=== PATIENT | female | born 1960 | race Caucasian/White ===

== ENCOUNTER 2023-08-06 13:37 | Emergency (ER) | payer OTHER, SELFPAY ==
[2023-08-06 13:43] VITALS: BP 135/81; PULSE 71; RESP 17; TEMP 36.8; O2SAT 96; BMI 26.6
--- NOTE | 2023-08-06 13:46 | XRR_ITS ---
PROCEDURE INFORMATION: Exam: XR Right Shoulder Exam date and time: 08/06/2023 1:54 PM Age: 63 years old Clinical indication: Injury or trauma; Other: Hit RT shoulder; Blunt trauma (contusions or hematomas); Right TECHNIQUE: Imaging protocol: Radiologic exam of the right shoulder. Views: 2 or more views. COMPARISON: No relevant prior studies available. FINDINGS: Bones/joints: No fracture or dislocation is seen about the right shoulder. No abnormal widening or separation of the AC joint. Moderate degenerative change of the AC joint and mild degenerative change of the shoulder. Adjacent osseous structures show no acute abnormality. No abnormal soft tissue calcification is seen about the shoulder joint. Soft tissues: No significant focal soft tissue abnormality. XR/XR shoulder RT min 2V* [id number] IMPRESSION: No fracture or dislocation.
--- NOTE | 2023-08-06 13:47 | ED_ITS ---
HPI - Extremity Injury (Upper) General: Chief Complaint: Extremity Injury, Upper Stated Complaint: right shoulder issues Time Seen by Provider: 08/06/23 13:44 Source: patient Mode of arrival: ambulatory Limitations: no limitations History of Present Illness: Patient is a 63-year-old female presents to ED today with complaint of a right shoulder injury that she sustained earlier today when she accidentally ran the shoulder into a door jam causing it to force backwards. Patient states since then she has had pain and decreased range of motion to the joint. complaint: injury to: right and shoulder Onset (ago): hour(s) Other Extremity Injury: Right: shoulder Other injuries: none Place: home Severity: moderate Relieving factors: immobilization Exacerbating factors: movement of extremity Context: direct blow Associated symptoms: Reports no associated symptoms; Denies neck pain or weakness in extremities Review of Systems Card: Denies: chest pain Resp: Denies: dyspnea Musc: Reports: joint pain (R shoulder) and limited range of motion; Denies: neck pain, back pain, extremity pain, extremity swelling, joint swelling, joint redness or joint warmth Neuro: Denies: numbness in extremities, weakness in extremities or sensory changes Physical Exam Const: COMMON NORMALS: no acute distress, patient oriented x3, no limitations, healthy appearing, alert and well nourished Chest: COMMONS NORMALS: normal inspection of the chest and normal palpation of entire chest wall Resp: COMMON NORMALS: normal respiratory effort and clear to auscultation bilaterally AUSCULTATION: clear to auscultation bilaterally Cardio: COMMON NORMALS: regular rate and regular rhythm RATE: regular rate RHYTHM: regular rhythm Extremity: COMMON NORMALS: capillary refill normal, no joint enlargement, no clubbing, cyanosis or edema, no calf tenderness and no pedal edema GENERAL: Yes normal exam except as noted RIGHT UPPER EXTREMITY: Yes shoulder joint Right shoulder: Yes Right shoulder joint inspection exam (normal gross inspection ), Yes Right shoulder joint ROM exam (cannot initiate flexion without assistance from other arm), Yes Right shoulder joint neurovascular exam (normal) and Yes Right shoulder joint other findings (normal IR/ER and abduction/adduction) Neuro: COMMON NORMALS: patient oriented x3, moves all extremities, no focal motor deficits and no sensory deficits noted SENSORIUM/ORIENTATION: Yes alert Skin: COMMON NORMALS: no rashes or lesions noted GENERAL SKIN EXAM: no rashes or lesions noted TRAUMA: no lacerations or abrasions Course Vital Signs: Vital signs: Vital Signs Temperature 98.3 F 08/06/23 13:43 Pulse Rate 71 08/06/23 13:43 Respiratory Rate 17 08/06/23 13:43 Blood Pressure 135/81 08/06/23 13:43 Pulse Oximetry 96 08/06/23 13:43 Oxygen Delivery Me thod Room Air 08/06/23 13:43 MDM - Extremity Injury (Upper) Medical Decision Making XR negative. Will sling for comfort. Recommend passive ROM, ice/heat, OTC NSAIDS, and will prescribe muscle relaxers/steroids. Follow up with PCP in 1-2 weeks if symptoms do not improve. Lab Data Radiology Impressions Shoulder X-Ray 08/06/23 13:46 IMPRESSION: No fracture or dislocation. All radiology interpretation(s) finalized by discharge Discharge Plan Discharge Patient Disposition: Home Clinical Impression: Injury of right shoulder Qualifiers: Encounter type: initial encounter Qualified Code(s): S49.91XA - Unspecified injury of right shoulder and upper arm, initial encounter Condition: Stable Prescriptions: New methocarbamol 500 mg tablet 1,000 mg PO Q8H Qty: 30 0RF Medrol (Can) 4 mg tablets,dose pack See Rx Instructions .ROUTE .COMPLEX Qty: 21 0RF Rx Instructions: orally per package directions Discharge Orders: Discharge ED (Routine); Ordered 08/06/23 Ordered By: Monalisa Aguillon Activity Restrictions/Additional Instructions: As we discussed you may apply ice to the shoulder for the next 48 hours and then switch and start doing heat. He may continue with [id number] anti- inflammatories. Continue to do passive range of motion of the joint. Follow-up with primary care in 1 to 2 weeks if symptoms do not seem to be improving. Coding Level of Care Code ED Veterinary Surgery Technologist for Lidya Montanez
== END 2023-08-06 14:31 | disposition home or self-care (01) ==
PROVIDERS: Emergency Provider Physician Assistant
DX: S49.91XA Unspecified injury of right shoulder and upper arm, initial encounter (principal); W22.01XA Walked into wall, initial encounter
CPT/HCPCS: 73030; 99283